=== PATIENT | female | born 1965 | race Caucasian/White ===

== ENCOUNTER 2021-08-06 09:58 | Emergency (ER) | payer OTHER ==
[~2021-08-06] VITALS: Ht 172.7 cm; Wt 99.8 kg
[~2021-08-06 09:58] MED LIST: ABILIFY10 MG PO; ALBUTEROL2.5 MG/32 INH; ALEVE220 M1 PO; ANTIVERT25 MG PO; BIOTIN1 M1 PO; BUSPIRONE HCL7.5 MG PO; CARISOPRODOL 3350 MG PO; CLARITIN10 MG PO; CRESTOR10 MG PO; CYMBALTA30 MG PO; DOXYCYCLINE 10100 MG PO; ESTRACE0.5 MG PO; ESTROGEL50 GM TD; FENOFIBRATE145 M1 PO; GABAPENTIN100 MG PO; HORIZANT300 MG PO; HYDROCODON-ACE1 EAC7 PO; HYDROCODON-ACE1 EAC8 PO; LASIX 20 MG TAB20 MG PO; LEVOTHYROXINE0.05 MG PO; MEDROLDOSEPACK PO; MOBIC15 MG PO; NEURONTIN 300300 M1 PO; NEXIUM 40 MG CA40 M1 PO; NORTRIPTYLINE H75 M1 PO; POTASSIUM99 M1 PO; REGLAN 10 MG TA10 MG PO; ROBAXIN 750 MG750 M1 PO; WOMEN'S DAILY1 EAC1 PO; XIFAXAN PO; ZANAFLEX2 M1 PO; ZANAFLEX4 M1 PO; ZANTAC 150MG T150 MG PO; ZOCOR40 MG PO
[2021-08-06] MEDS ORDERED: SEROQUEL200 MG PO (10:19)
[2021-08-06] MEDS ORDERED: CEFADROXIL 500500 M1 PO (10:19)
[2021-08-06] MEDS ORDERED: MAGNESIUM250 M1 PO (10:19)
[2021-08-06] MEDS ORDERED: FLEXERIL PO (10:19)
[2021-08-06 11:16] LABS: ABSOLUTE BASOPHILS 0.1 thou/uL (0.0-0.2); ABSOLUTE EOSINOPHILS 0.7 thou/uL (0.0-0.7); ABSOLUTE LYMPHOCYTES 2.2 thou/uL (0.8-5.3); ABSOLUTE MONOCYTES 0.5 thou/uL (0.0-1.2); ABSOLUTE NEUTROPHILS 5.9 thou/uL (1.6-8.1); BASOPHILS 0.6 %; EOSINOPHILS 7.2 %; HEMATOCRIT 37.4 % (37.0-47.0); HEMOGLOBIN 12.4 gm/dL (12.0-15.0); LYMPHOCYTES 23.4 %; MCH 29.8 pg (26.0-34.0); MCHC 33.2 g/dL (28.0-37.0); MCV 89.7 fL (80.0-100.0); MONOCYTES 5.5 %; MPV 6.3 fl. (7.2-11.1); NUCLEATED RBCS 0 /100WBC; PLATELET COUNT* 439 thou/uL (150-400); POLYS 63.3 %; RBC 4.17 mil/uL (4.20-5.00); RDW-CV 13.7 % (10.5-14.5); WBC 9.2 thou/uL (4.0-11.0)
[2021-08-06 11:51] LABS: CALCIUM 8.7 mg/dL (8.5-10.1); POTASSIUM 3.8 mmol/L (3.5-5.1)
[2021-08-06 11:56] LABS: ALBUMIN 2.8 g/dL (3.4-5.0); TOTAL BILIRUBIN 0.2 mg/dL (<0.1-1.0); TOTAL PROTEIN 6.6 g/dL (6.4-8.2)
[2021-08-06] MEDS ORDERED: DOXYCYCLINE 10100 MG PO (14:18)
[2021-08-06 14:28] VITALS: BP 159/58
== END 2021-08-06 14:28 | disposition home or self-care (01) ==
LOC: M.ERS 09:58
PROVIDERS: Family Medicine
DX: N64.59 Other signs and symptoms in breast (principal); Z48.01 Encounter for change or removal of surgical wound dressing; G43.909 Migraine, unspecified, not intractable, without status migrainosus; F17.210 Nicotine dependence, cigarettes, uncomplicated; Z90.711 Acquired absence of uterus with remaining cervical stump; Z98.890 Other specified postprocedural states; Z90.49 Acquired absence of other specified parts of digestive tract; Z79.899 Other long term (current) drug therapy; Z79.2 Long term (current) use of antibiotics; Z88.1 Allergy status to other antibiotic agents; Z90.13 Acquired absence of bilateral breasts and nipples